=== PATIENT | male | born 1970 | race Caucasian/White ===

== ENCOUNTER 2017-10-30 17:44 | Inpatient (IN) | payer OTHER ==
[~2017-10-30] VITALS: Ht 177.8 cm; Wt 104.4 kg
[2017-10-30 18:52] LABS: BASOPHILS # (AUTO) 0.03 x10^3/uL (0-0.1); BASOPHILS % (AUTO) 0 % (0-1); EOSINOPHILS # (AUTO) 0.03 x10^3/uL (0-0.4); EOSINOPHILS % (AUTO) 0 % (1-7); LYMPHOCYTES # (AUTO) 3.21 x10^3/uL (1-3.4); LYMPHOCYTES % (AUTO) 40 % (22-44); MD NO; MEAN CORPUSCULAR HEMOGLOBIN 31.1 pg (27.5-34.5); MEAN CORPUSCULAR HGB CONC 33.6 g/dL (33.2-36.2); MEAN CORPUSCULAR VOLUME 92.6 fL (81-97); MEAN PLATELET VOLUME 7.6 fL (7.4-10.4); MONOCYTES # (AUTO) 0.55 x10^3/uL (0.2-0.8); MONOCYTES % (AUTO) 7 % (2-9); NEUTROPHILS # (AUTO) 4.13 x10^3/uL (1.8-6.8); NEUTROPHILS % (AUTO) 52 % (42-75); PLATELET COUNT 190 x10^3/uL (130-400); RED BLOOD COUNT 5.31 x10^6/uL (4.38-5.82); RED CELL DISTRIBUTION WIDTH 15.6 % (9.4-14.8)
[2017-10-30 19:05] LABS: ALBUMIN 4.1 g/dL (3.4-5.0); ANION GAP 12 mmol/L (5-15); CALCIUM 8.6 mg/dL (8.5-10.1); CHLORIDE 103 mmol/L (98-107); CREATININE 0.96 mg/dL (0.7-1.3); SALICYLATE LEVEL 5.8 mg/dL (2.8-20.0)
[2017-10-30 19:07] LABS: ACETAMINOPHEN < 2 mcg/mL (10-30)
[2017-10-30] MEDS ORDERED: POTASSIUM CHLORIDE 20 MEQ TAB.ER.PRT PO ONE (21:00)
[2017-10-30] MEDS ORDERED: POTASSIUM CHLORIDE 20 MEQ TAB.ER.PRT ONE (23:43)
[2017-10-30] MEDS ORDERED: ONDANSETRON ODT 4 MG ONE (23:58)
[2017-10-31 00:05] LABS: AMPHETAMINE SCREEN, URINE Negative (Negative); BARBITURATE SCREEN, URINE Negative (Negative); BENZODIAZEPINE SCREEN, URINE Negative (Negative); CANNABINOID SCREEN, URINE Negative (Negative); COCAINE SCREEN, URINE Negative (Negative); METHADONE SCREEN, URINE Negative (Negative); OPIATE SCREEN, URINE Negative (Negative)
[2017-10-31] MEDS ORDERED: ONDANSETRON ODT 4 MG PO ONE (00:30)
[2017-10-31] MEDS ORDERED: CHLORDIAZEPOXIDE 25 MG CAPSULE PO ONE (00:30)
[2017-10-31] MEDS ORDERED: LORazepam 1MG TABLET ONE ×2 (03:21→05:04)
[2017-10-31] MEDS ORDERED: LORazepam 1MG TABLET PO ONE ×2 (03:30→05:30)
[2017-10-31] MEDS ORDERED: LORazepam 2 MG/ML, 1ML IVPush ONE (05:30)
[2017-10-31] MEDS ORDERED: LORazepam 2 MG/ML, 1ML ONE (05:45)
[2017-10-31] MEDS ORDERED: PROMETHAZINE 25 MG/ML, 1ML IM PRN (06:00)
[2017-10-31] MEDS ORDERED: TEMAZEPAM 15 MG CAPSULE PO PRN (06:00)
[2017-10-31] MEDS ORDERED: ONDANSETRON 2MG/ML, 2ML IVPush PRN (06:00)
[2017-10-31] MEDS ORDERED: ACETAMINOPHEN 325 MG TABLET PO PRN (06:00)
[2017-10-31 06:30] VITALS: BP 130/71
[2017-10-31] MEDS: POTASSIUM CHLORIDE 20 MEQ, MAGNESIUM SULFATE 2 GM, THIAMINE 100 MG, MVI ADULT 10 ML, FO... IV SCH (06:59)
[2017-10-31] MEDS ORDERED: MAGNESIUM SULFATE PMX 2GM/50ML 50 ML IV ONE (07:00)
[2017-10-31] MEDS: ENOXAPARIN 40 MG/0.4 ML SQ SCH (08:11)
[2017-10-31] MEDS: CHLORDIAZEPOXIDE 25 MG CAPSULE PO SCH ×3 (08:11→20:23)
[2017-10-31 13:29] VITALS: BP 163/107
[2017-10-31] MEDS: LORazepam 2 MG/ML, 1ML IVPush PRN ×2 (13:40→20:21)
[2017-10-31] MEDS ORDERED: CITA40TA12 PO (15:47)
[2017-10-31] MEDS ORDERED: HYDR-3307 PO (15:47)
[2017-10-31] MEDS: KETOROLAC 30 MG/1 ML IVPush PRN (18:33)
[2017-10-31 19:10] VITALS: BP 136/80
[2017-11-01 02:11] VITALS: BP 154/89
[2017-11-01] MEDS: CHLORDIAZEPOXIDE 25 MG CAPSULE PO SCH ×3 (03:15→21:14)
[2017-11-01 05:27] LABS: ALBUMIN 3.1 g/dL (3.4-5.0); ANION GAP 7 mmol/L (5-15); CALCIUM 8.6 mg/dL (8.5-10.1); CHLORIDE 105 mmol/L (98-107)
[2017-11-01] MEDS: POTASSIUM CHLORIDE 20 MEQ, MAGNESIUM SULFATE 2 GM, THIAMINE 100 MG, MVI ADULT 10 ML, FO... IV SCH ×2 (05:29→15:02)
[2017-11-01] MEDS: ENOXAPARIN 40 MG/0.4 ML SQ SCH (05:30)
[2017-11-01 05:32] LABS: ALANINE AMINOTRANSFERASE 33 U/L (12-78); ALKALINE PHOSPHATASE 111 U/L (45-117); BILIRUBIN,TOTAL 0.9 mg/dL (0.2-1.0); CREATININE 1.09 mg/dL (0.7-1.3); TOTAL PROTEIN 6.1 g/dL (6.4-8.2)
[2017-11-01] MEDS: LORazepam 2 MG/ML, 1ML IVPush PRN (05:32)
[2017-11-01 06:44] LABS: BASOPHILS # (AUTO) 0.02 x10^3/uL (0-0.1); BASOPHILS % (AUTO) 0 % (0-1); EOSINOPHILS % (AUTO) 2 % (1-7); LYMPHOCYTES # (AUTO) 1.43 x10^3/uL (1-3.4); LYMPHOCYTES % (AUTO) 25 % (22-44); MD SCAN; MEAN CORPUSCULAR HEMOGLOBIN 31.3 pg (27.5-34.5); MEAN CORPUSCULAR HGB CONC 33.9 g/dL (33.2-36.2); MEAN CORPUSCULAR VOLUME 92.3 fL (81-97); MEAN PLATELET VOLUME 8.6 fL (7.4-10.4); MONOCYTES % (AUTO) 7 % (2-9); NEUTROPHILS % (AUTO) 66 % (42-75); PLATELET COUNT 87 x10^3/uL (130-400); RED BLOOD COUNT 3.98 x10^6/uL (4.38-5.82); RED CELL DISTRIBUTION WIDTH 14.9 % (9.4-14.8)
[2017-11-01 08:37] VITALS: BP 149/91
[2017-11-01] MEDS: CITALOPRAM 20 MG TABLET PO SCH (09:23)
[2017-11-01 14:15] VITALS: BP 158/84
[2017-11-01] MEDS: KETOROLAC 30 MG/1 ML IVPush PRN (21:23)
[2017-11-01 22:24] VITALS: BP 169/89
[2017-11-02 02:14] VITALS: BP 168/88
[2017-11-02] MEDS: POTASSIUM CHLORIDE 20 MEQ, MAGNESIUM SULFATE 2 GM, THIAMINE 100 MG, MVI ADULT 10 ML, FO... IV SCH ×3 (02:16→21:27)
[2017-11-02] MEDS: ENOXAPARIN 40 MG/0.4 ML SQ SCH (05:16)
[2017-11-02 07:16] VITALS: BP 165/99
[2017-11-02] MEDS ORDERED: LORazepam 2 MG/ML, 1ML IV PRN ×5 (09:30)
[2017-11-02] MEDS ORDERED: LORazepam 1MG TABLET PO PRN ×4 (09:30)
[2017-11-02] MEDS ORDERED: LORazepam 0.5MG TABLET PO PRN (09:30)
[2017-11-02] MEDS: CITALOPRAM 20 MG TABLET PO SCH (10:21)
[2017-11-02 12:55] VITALS: BP 162/85
[2017-11-02] MEDS ORDERED: POLYETHYLENE GLYCOL 17 GM PACKET PO PRN (16:00)
[2017-11-02] MEDS: HYDROcodone/APAP 5/325 TABLET PO PRN ×2 (16:12→22:19)
[2017-11-02 20:47] VITALS: BP 169/92
[2017-11-03 03:14] VITALS: BP 144/99
[2017-11-03] MEDS: HYDROcodone/APAP 5/325 TABLET PO PRN ×5 (04:07→22:02)
[2017-11-03 05:11] LABS: ALANINE AMINOTRANSFERASE 28 U/L (12-78); ALBUMIN 2.8 g/dL (3.4-5.0); ANION GAP 5 mmol/L (5-15); CALCIUM 8.1 mg/dL (8.5-10.1); CHLORIDE 110 mmol/L (98-107); MEAN CORPUSCULAR HEMOGLOBIN 31.5 pg (27.5-34.5); MEAN CORPUSCULAR HGB CONC 33.8 g/dL (33.2-36.2); MEAN CORPUSCULAR VOLUME 93.1 fL (81-97); MEAN PLATELET VOLUME 8.6 fL (7.4-10.4); PLATELET COUNT 90 x10^3/uL (130-400); RED CELL DISTRIBUTION WIDTH 14.6 % (9.4-14.8)
[2017-11-03 05:14] LABS: ALKALINE PHOSPHATASE 87 U/L (45-117); BILIRUBIN,TOTAL 0.3 mg/dL (0.2-1.0); TOTAL PROTEIN 5.8 g/dL (6.4-8.2)
[2017-11-03] MEDS: ENOXAPARIN 40 MG/0.4 ML SQ SCH (05:44)
[2017-11-03 05:52] LABS: BASOPHILS # (AUTO) 0.02 x10^3/uL (0-0.1); BASOPHILS % (AUTO) 0 % (0-1); EOSINOPHILS % (AUTO) 3 % (1-7); LYMPHOCYTES # (AUTO) 2.28 x10^3/uL (1-3.4); LYMPHOCYTES % (AUTO) 30 % (22-44); MD SCAN; MONOCYTES # (AUTO) 0.44 x10^3/uL (0.2-0.8); MONOCYTES % (AUTO) 6 % (2-9); NEUTROPHILS # (AUTO) 4.73 x10^3/uL (1.8-6.8); NEUTROPHILS % (AUTO) 62 % (42-75)
[2017-11-03 07:04] VITALS: BP 180/97
[2017-11-03] MEDS: CITALOPRAM 20 MG TABLET PO SCH (07:40)
[2017-11-03 14:12] VITALS: BP 180/130
[2017-11-03] MEDS: POTASSIUM CHLORIDE 20 MEQ, MAGNESIUM SULFATE 2 GM, THIAMINE 100 MG, MVI ADULT 10 ML, FO... IV SCH (18:01)
[2017-11-03 20:24] VITALS: BP 158/104
[2017-11-04] VITALS (9 sets, daily range): BP systolic 128–177; BP diastolic 75–115
[2017-11-04] MEDS: POTASSIUM CHLORIDE 20 MEQ, MAGNESIUM SULFATE 2 GM, THIAMINE 100 MG, MVI ADULT 10 ML, FO... IV SCH (00:06)
[2017-11-04] MEDS: HYDROcodone/APAP 5/325 TABLET PO PRN ×5 (02:15→20:24)
[2017-11-04 05:58] LABS: BASOPHILS # (AUTO) 0.02 x10^3/uL (0-0.1); BASOPHILS % (AUTO) 0 % (0-1); EOSINOPHILS # (AUTO) 0.14 x10^3/uL (0-0.4); EOSINOPHILS % (AUTO) 3 % (1-7); LYMPHOCYTES # (AUTO) 2.29 x10^3/uL (1-3.4); LYMPHOCYTES % (AUTO) 39 % (22-44); MD NO; MEAN CORPUSCULAR HEMOGLOBIN 31.4 pg (27.5-34.5); MEAN CORPUSCULAR HGB CONC 33.8 g/dL (33.2-36.2); MEAN CORPUSCULAR VOLUME 92.9 fL (81-97); MEAN PLATELET VOLUME 8.5 fL (7.4-10.4); MONOCYTES # (AUTO) 0.31 x10^3/uL (0.2-0.8); MONOCYTES % (AUTO) 5 % (2-9); NEUTROPHILS # (AUTO) 3.09 x10^3/uL (1.8-6.8); NEUTROPHILS % (AUTO) 53 % (42-75); PLATELET COUNT 104 x10^3/uL (130-400); RED BLOOD COUNT 4.07 x10^6/uL (4.38-5.82); RED CELL DISTRIBUTION WIDTH 15.1 % (9.4-14.8)
[2017-11-04 06:01] LABS: ALBUMIN 3.3 g/dL (3.4-5.0); ANION GAP 7 mmol/L (5-15); CALCIUM 8.4 mg/dL (8.5-10.1); CHLORIDE 110 mmol/L (98-107)
[2017-11-04 06:05] LABS: ALANINE AMINOTRANSFERASE 42 U/L (12-78); ALKALINE PHOSPHATASE 95 U/L (45-117); BILIRUBIN,TOTAL 0.3 mg/dL (0.2-1.0); CREATININE 0.73 mg/dL (0.7-1.3); TOTAL PROTEIN 6.4 g/dL (6.4-8.2)
[2017-11-04] MEDS: ENOXAPARIN 40 MG/0.4 ML SQ SCH (06:29)
[2017-11-04] MEDS: CITALOPRAM 20 MG TABLET PO SCH (10:35)
[2017-11-04] MEDS: FOLIC ACID 1 MG TABLET PO SCH (10:35)
[2017-11-04] MEDS: THIAMINE 100MG TABLET PO SCH (10:35)
[2017-11-04] MEDS ORDERED: LORazepam 1MG TABLET ONE (11:31)
[2017-11-04] MEDS ORDERED: LORazepam 0.5MG TABLET PO PRN (17:00)
[2017-11-05 01:17] VITALS: BP 158/81
[2017-11-05 03:59] VITALS: BP 168/89
[2017-11-05] MEDS: ENOXAPARIN 40 MG/0.4 ML SQ SCH (06:02)
[2017-11-05] MEDS: HYDROcodone/APAP 5/325 TABLET PO PRN ×2 (06:14→11:25)
[2017-11-05 07:00] LABS: ALBUMIN 2.9 g/dL (3.4-5.0); ANION GAP 5 mmol/L (5-15); CALCIUM 8.3 mg/dL (8.5-10.1); CHLORIDE 109 mmol/L (98-107); CREATININE 0.78 mg/dL (0.7-1.3)
[2017-11-05 07:07] VITALS: BP_SYST 164; BP_DIAS 102; BP_DIAS 107
[2017-11-05] MEDS: CITALOPRAM 20 MG TABLET PO SCH (08:02)
[2017-11-05] MEDS: THIAMINE 100MG TABLET PO SCH (08:02)
[2017-11-05] MEDS: FOLIC ACID 1 MG TABLET PO SCH (08:02)
[2017-11-05 08:41] LABS: BASOPHILS # (AUTO) 0.04 x10^3/uL (0-0.1); BASOPHILS % (AUTO) 1 % (0-1); EOSINOPHILS # (AUTO) 0.13 x10^3/uL (0-0.4); EOSINOPHILS % (AUTO) 2 % (1-7); LYMPHOCYTES # (AUTO) 2.32 x10^3/uL (1-3.4); LYMPHOCYTES % (AUTO) 37 % (22-44); MD NO; MEAN CORPUSCULAR HEMOGLOBIN 31.3 pg (27.5-34.5); MEAN CORPUSCULAR HGB CONC 33.8 g/dL (33.2-36.2); MEAN CORPUSCULAR VOLUME 92.6 fL (81-97); MEAN PLATELET VOLUME 7.8 fL (7.4-10.4); MONOCYTES # (AUTO) 0.45 x10^3/uL (0.2-0.8); MONOCYTES % (AUTO) 7 % (2-9); NEUTROPHILS % (AUTO) 54 % (42-75); PLATELET COUNT 130 x10^3/uL (130-400); RED BLOOD COUNT 4.11 x10^6/uL (4.38-5.82); RED CELL DISTRIBUTION WIDTH 14.8 % (9.4-14.8)
[2017-11-05] MEDS ORDERED: FOLI-17 PO (12:32)
[2017-11-05] MEDS ORDERED: THIA100T6 PO (12:32)
== END 2017-11-05 15:00 | disposition home or self-care (01) | DRG 895 ==
LOC: ED 18:08 → EDIP 10-31 05:30 → SUATTDRO 10-31 05:39 → 4NOR 10-31 07:23 → 2N 11-04 16:45
PROVIDERS: ADMIT Internal Medicine; ATTEND Internal Medicine
PROC: HZ34ZZZ Individual Counseling for Substance Abuse Treatment, Interpersonal (ICD-10-PCS; principal; 2017-10-31)
DX: F10.239 Alcohol dependence with withdrawal, unspecified (principal); R45.851 Suicidal ideations; F33.1 Major depressive disorder, recurrent, moderate; F10.229 Alcohol dependence with intoxication, unspecified; F41.1 Generalized anxiety disorder; Y90.8 Blood alcohol level of 240 mg/100 ml or more; Z81.8 Family history of other mental and behavioral disorders; X83.8XXA Intentional self-harm by other specified means, initial encounter; Z71.41 Alcohol abuse counseling and surveillance of alcoholic
CPT/HCPCS: 36415; 80048; 80053; 80307; 80329; 82040; 83735; 85025; 96374; J1650; J1885; J3411; J3475; J3480; J7042; Q0162; G0480; J2060

== ENCOUNTER 2018-02-18 17:59 | Emergency (ER) | payer OTHER ==
[~2018-02-18] VITALS: Ht 177.8 cm; Wt 95.5 kg
[~2018-02-18 17:59] MED LIST: CITA40TA12 PO; FOLI-17 PO; HYDR-3307 PO; LISI-167 PO; THIA100T6 PO
[2018-02-18 18:30] VITALS: BP 124/68
== END 2018-02-18 18:35 | disposition left against medical advice (07) ==
LOC: ED 18:29
DX: F10.129 Alcohol abuse with intoxication, unspecified (principal); M25.552 Pain in left hip
CPT/HCPCS: 99283

== ENCOUNTER 2018-02-28 20:48 | Emergency (ER) | payer SELFPAY ==
[~2018-02-28] VITALS: Ht 177.8 cm; Wt 95.0 kg
[2018-02-28 22:14] VITALS: BP 118/82
== END 2018-02-28 22:16 | disposition home or self-care (01) ==
LOC: ED 21:30
DX: G31.2 Degeneration of nervous system due to alcohol (principal); M25.552 Pain in left hip; F17.200 Nicotine dependence, unspecified, uncomplicated
CPT/HCPCS: 99283

== ENCOUNTER 2018-07-09 19:03 | Emergency (ER) | payer SELFPAY ==
[~2018-07-09] VITALS: Ht 177.8 cm; Wt 102.0 kg
[~2018-07-09 19:03] MED LIST changes: -THIA100T6 PO; +THIA100T67 PO
[2018-07-09 19:22] VITALS: BP 121/77
[2018-07-09] MEDS ORDERED: MIDAZOLAM 1 MG/ML, 2ML ONE (19:47)
[2018-07-09 19:52] LABS: BASOPHILS # (AUTO) 0.03 x10^3/uL (0-0.1); BASOPHILS % (AUTO) 0 % (0-1); EOSINOPHILS # (AUTO) 0.07 x10^3/uL (0-0.4); EOSINOPHILS % (AUTO) 1 % (1-7); LYMPHOCYTES # (AUTO) 4.19 x10^3/uL (1-3.4); LYMPHOCYTES % (AUTO) 32 % (22-44); MD NO; MEAN CORPUSCULAR HEMOGLOBIN 30.9 pg (27.5-34.5); MEAN CORPUSCULAR HGB CONC 34.2 g/dL (33.2-36.2); MEAN CORPUSCULAR VOLUME 90.2 fL (81-97); MEAN PLATELET VOLUME 7.8 fL (7.4-10.4); MONOCYTES # (AUTO) 0.32 x10^3/uL (0.2-0.8); MONOCYTES % (AUTO) 2 % (2-9); NEUTROPHILS # (AUTO) 8.43 x10^3/uL (1.8-6.8); NEUTROPHILS % (AUTO) 65 % (42-75); PLATELET COUNT 267 x10^3/uL (130-400); RED BLOOD COUNT 5.05 x10^6/uL (4.38-5.82); RED CELL DISTRIBUTION WIDTH 15.4 % (9.4-14.8)
[2018-07-09 20:04] LABS: ALANINE AMINOTRANSFERASE 23 U/L (12-78); ALBUMIN 3.9 g/dL (3.4-5.0); ANION GAP 11 mmol/L (5-15); CALCIUM 8.7 mg/dL (8.5-10.1); CHLORIDE 118 mmol/L (98-107); CREATININE 0.79 mg/dL (0.7-1.3); SALICYLATE LEVEL 6.6 mg/dL (2.8-20.0)
[2018-07-09 20:14] LABS: ALKALINE PHOSPHATASE 123 U/L (45-117); BILIRUBIN,TOTAL 0.3 mg/dL (0.2-1.0); TOTAL PROTEIN 7.8 g/dL (6.4-8.2)
[2018-07-09 20:21] LABS: ACETAMINOPHEN < 2 mcg/mL (10-30)
== END 2018-07-09 21:28 | disposition home or self-care (01) ==
LOC: ED 21:22
DX: F10.129 Alcohol abuse with intoxication, unspecified (principal); R45.1 Restlessness and agitation
CPT/HCPCS: 36415; 80053; 80307; 80329; 85025; 99284; G0480

== ENCOUNTER 2018-11-22 19:03 | Observation (INO) | payer SELFPAY ==
[~2018-11-22] VITALS: Ht 175.3 cm; Wt 90.0 kg
--- NOTE | 2018-11-22 19:15 | NUR ---
PT ALSO SEEN AT [facility] TODAY, DISCHARGED FROM ER AND THEN WENT TO [facility]. [facility] SENT PT WITH LEGAL HOLD. PT STATES SI WITH PLAN TO JUMP OFF OR DRIVE OFF PARKING GARAGE OR FREEWAY OVERPASS. PT WITH HX OF SA X 2, DEPRESSION, ETOH ABUSE. PT STATES HE STOPPED DRINKING ON 11/19 AFTER GOING TO [facility]. PER PT, HE WAS GIVEN LIBRIUM TO PREVENT ALCOHOL WITHDRAWAL. SITTER AT DOORWAY, ROOM SECURED.
--- NOTE | 2018-11-22 19:37 | NUR ---
URINE COLLECTED/SENT TO LAB. ALL BELONGINGS REMOVED AND INTO SECURE LOCKER. ROOM SECURED, SITTER AT DOORWAY FOR CLOSE OBS.
[2018-11-22 19:44] LABS: BASOPHILS # (AUTO) 0.02 x10^3/uL (0-0.1); BASOPHILS % (AUTO) 0 % (0-1); EOSINOPHILS # (AUTO) 0.11 x10^3/uL (0-0.4); EOSINOPHILS % (AUTO) 1 % (1-7); LYMPHOCYTES # (AUTO) 2.47 x10^3/uL (1-3.4); LYMPHOCYTES % (AUTO) 32 % (22-44); MD NO; MEAN CORPUSCULAR HEMOGLOBIN 31.2 pg (27.5-34.5); MEAN CORPUSCULAR HGB CONC 33.9 g/dL (33.2-36.2); MEAN CORPUSCULAR VOLUME 91.9 fL (81-97); MONOCYTES # (AUTO) 0.51 x10^3/uL (0.2-0.8); MONOCYTES % (AUTO) 7 % (2-9); NEUTROPHILS # (AUTO) 4.56 x10^3/uL (1.8-6.8); NEUTROPHILS % (AUTO) 59 % (42-75); PLATELET COUNT 206 x10^3/uL (130-400); RED BLOOD COUNT 4.43 x10^6/uL (4.38-5.82); RED CELL DISTRIBUTION WIDTH 15.9 % (9.4-14.8)
[2018-11-22 19:56] LABS: ALANINE AMINOTRANSFERASE 23 U/L (12-78); ALBUMIN 3.7 g/dL (3.4-5.0); ANION GAP 6 mmol/L (5-15); CALCIUM 8.6 mg/dL (8.5-10.1); CHLORIDE 107 mmol/L (98-107); CREATININE 0.99 mg/dL (0.7-1.3); SALICYLATE LEVEL 3.6 mg/dL (2.8-20.0)
[2018-11-22 19:58] LABS: ALKALINE PHOSPHATASE 120 U/L (45-117); BILIRUBIN,TOTAL 0.4 mg/dL (0.2-1.0)
[2018-11-22 20:01] LABS: ACETAMINOPHEN < 2 mcg/mL (10-30)
[2018-11-22 20:18] LABS: AMPHETAMINE SCREEN, URINE Negative (Negative); BARBITURATE SCREEN, URINE Negative (Negative); BENZODIAZEPINE SCREEN, URINE Positive (Negative); CANNABINOID SCREEN, URINE Positive (Negative); COCAINE SCREEN, URINE Negative (Negative); METHADONE SCREEN, URINE Negative (Negative); OPIATE SCREEN, URINE Positive (Negative)
--- NOTE | 2018-11-22 20:39 | NUR ---
PT QUIET AND POLITE WITH STAFF. NAD, NO REQUESTS OR COMPLAINTS. WARM BLANKET PROVIDED, SITTER AT DOORWAY.
[2018-11-22] MEDS ORDERED: IBUPROFEN 200 MG TABLET PO ONE (21:00)
[2018-11-22] MEDS ORDERED: IBUPROFEN 600 MG TABLET ONE (21:11)
--- NOTE | 2018-11-22 21:12 | NUR ---
TP RN: PACKET FAXED TO [facility] W/ FAX CONFIRMATION.
--- NOTE | 2018-11-22 21:16 | NUR ---
PT REQUESTING PAIN MEDICATION, ORDER FOR MOTRIN OBTAINED FROM ERP AND GIVEN TO PT. PT THEN ASKING FOR HIS "REGULAR PAIN MEDICATION". WHEN DOING MED REC, PT UNABLE TO PROVIDE HIS REGULAR MEDICATION. PT INFORMED THAT [facility] WON'T BE ORDERING NARCOTIC. PT STATES "I GOT SOME AT [facility] TODAY". [facility] NOTIFIED OF PT REQUEST. SITTER AT DOORWAY.
--- NOTE | 2018-11-22 22:12 | NUR ---
REPORT TO RICKEY BURTON.
--- NOTE | 2018-11-22 22:20 | NUR ---
REPORT RECEIVED AND CARE ASSUMED. PT EATING SANDWICH PROVIDED BY PREVIOUS RN. DISCUSSED POC. WARM BLANKET GIVEN. VSS. AWAITING HOSPITALIST EVAL AND TRANSFER TO . NO FURTHER NEEDS EXPRESSED AT THIS TIME. SITTER IN PLACE FOR OBS.
--- NOTE | 2018-11-22 23:10 | NUR ---
PT SLEEPING WITH RESP EVEN AND UNLABORED. NO ACUTE CHANGES NOTED. SITTER REMAINS AT BEDSIDE. AWAITING ORDERS AND TRANSFER TO FLOOR.
[2018-11-23] MEDS ORDERED: ONDANSETRON ODT 4 MG PO PRN
[2018-11-23] MEDS ORDERED: DOCUSATE 100 MG CAPSULE PO PRN
[2018-11-23] MEDS ORDERED: LIDODERM 5% PATCH TD PRN
[2018-11-23] MEDS ORDERED: ACETAMINOPHEN 325 MG TABLET PO PRN
--- NOTE | 2018-11-23 00:12 | NUR ---
TASK RN: REPORT CALLED TO 2N.
[2018-11-23 00:39] VITALS: BP 134/74
[2018-11-23] MEDS: QUETIAPINE 100MG TABLET PO SCH ×2 (00:59→20:58)
[2018-11-23] MEDS: LORazepam 1MG TABLET PO PRN ×2 (00:59→22:47)
[2018-11-23 01:18] VITALS: BP 134/74
[2018-11-23 07:42] VITALS: BP 119/70
[2018-11-23] MEDS: CITALOPRAM 20 MG TABLET PO SCH (08:50)
[2018-11-23] MEDS: LISINOPRIL 10 MG TABLET PO SCH (08:50)
[2018-11-23] MEDS: GABAPENTIN 300 MG CAPSULE PO PRN (14:38)
[2018-11-23] MEDS: HYDROcodone/APAP 5/325 TABLET PO PRN ×2 (14:38→20:33)
[2018-11-23 19:41] VITALS: BP 137/90
[2018-11-24] MEDS: GABAPENTIN 300 MG CAPSULE PO PRN ×2 (06:38→16:30)
[2018-11-24] MEDS: HYDROcodone/APAP 5/325 TABLET PO PRN ×6 (06:38→21:41)
[2018-11-24 08:00] VITALS: BP 146/82
[2018-11-24] MEDS: CITALOPRAM 20 MG TABLET PO SCH (08:15)
[2018-11-24] MEDS: LISINOPRIL 10 MG TABLET PO SCH (08:15)
[2018-11-24] MEDS ORDERED: HYDROcodone/APAP 5/325 TABLET PO PRN (10:30)
[2018-11-24 19:39] VITALS: BP 138/82
[2018-11-24] MEDS: QUETIAPINE 100MG TABLET PO SCH (22:15)
[2018-11-25] MEDS: HYDROcodone/APAP 5/325 TABLET PO PRN ×5 (05:50→23:35)
[2018-11-25] MEDS: GABAPENTIN 300 MG CAPSULE PO PRN ×2 (05:50→15:25)
[2018-11-25 07:30] VITALS: BP 123/76
[2018-11-25] MEDS: CITALOPRAM 20 MG TABLET PO SCH (08:28)
[2018-11-25] MEDS: LISINOPRIL 10 MG TABLET PO SCH (08:30)
[2018-11-25] MEDS ORDERED: HYDROcodone/APAP 5/325 TABLET ONE (15:23)
[2018-11-25 19:21] VITALS: BP 147/90
[2018-11-25] MEDS: QUETIAPINE 100MG TABLET PO SCH (21:00)
[2018-11-25] MEDS: LORazepam 1MG TABLET PO PRN (21:15)
[2018-11-26] MEDS: HYDROcodone/APAP 5/325 TABLET PO PRN ×4 (05:49→19:35)
[2018-11-26] MEDS: GABAPENTIN 300 MG CAPSULE PO PRN ×2 (05:49→15:25)
[2018-11-26] MEDS: CITALOPRAM 20 MG TABLET PO SCH (07:53)
[2018-11-26] MEDS: LISINOPRIL 10 MG TABLET PO SCH (07:54)
[2018-11-26 08:00] VITALS: BP 146/85
[2018-11-26] MEDS: IBUPROFEN 600 MG TABLET PO PRN ×2 (10:19→19:35)
[2018-11-26 20:00] VITALS: BP_SYST 118; BP_SYST 136; BP_DIAS 70; BP_DIAS 82
[2018-11-26] MEDS: QUETIAPINE 100MG TABLET PO SCH (21:21)
[2018-11-26] MEDS: LORazepam 1MG TABLET PO PRN (22:41)
[2018-11-27 07:50] VITALS: BP 149/84
[2018-11-27] MEDS: CITALOPRAM 20 MG TABLET PO SCH (07:56)
[2018-11-27] MEDS: GABAPENTIN 300 MG CAPSULE PO PRN (07:56)
[2018-11-27] MEDS: HYDROcodone/APAP 5/325 TABLET PO PRN ×2 (07:56→11:57)
[2018-11-27] MEDS: LISINOPRIL 10 MG TABLET PO SCH (07:56)
== END 2018-11-27 12:41 ==
LOC: ED 20:46 → EDIP 21:17 → 2N 11-23 00:25
PROVIDERS: ADMIT Internal Medicine; ATTEND Internal Medicine
DX: R45.851 Suicidal ideations (principal); F33.2 Major depressive disorder, recurrent severe without psychotic features; F10.10 Alcohol abuse, uncomplicated; F17.210 Nicotine dependence, cigarettes, uncomplicated; F41.1 Generalized anxiety disorder; G89.29 Other chronic pain; M87.9 Osteonecrosis, unspecified
CPT/HCPCS: 36415; 80053; 80307; 80329; 85025; 93005; 99284; G0378; G0480